=== PATIENT | female | born 1990 | race Caucasian/White ===

== ENCOUNTER 2017-05-19 19:26 | Emergency (ER) | payer MEDICAID ==
[2017-05-19 19:32] VITALS: BP 136/83
[2017-05-19 19:47] LABS: BILIRUBIN,URINE NEGATIVE (NEGATIVE); PH,URINE 5.5 PH (5.0-7.5)
[2017-05-19 20:03] LABS: HCG UR QUAL NEGATIVE; UA w/ MICROSCOPIC CHARGE YES
[2017-05-19 20:25] LABS: UR CULTURE IF IND NOT INDICATED
[2017-05-19] MEDS ORDERED: CYCLOBENZAPRINE 10 MG TABLET PO STA (20:47)
[2017-05-19] MEDS ORDERED: ACETAMINOPHEN 325 MG TABLET PO STA (20:47)
[2017-05-19] MEDS ORDERED: DEXAMETHASONE 10 MG/ML VIAL PO STA (20:47)
[2017-05-19] MEDS ORDERED: ACETAMINOPHEN 325 MG TABLET PO ONE (21:24)
[2017-05-19] MEDS ORDERED: CYCLOBENZAPRINE 10 MG TABLET PO ONE (21:24)
[2017-05-19] MEDS ORDERED: DEXAMETHASONE 10 MG/ML VIAL ONE (21:24)
--- NOTE | 2017-05-19 21:41 | XRAY Preliminary Report ---
Exam: XR Thoracic Spine 3 View IMPRESSION: Normal thoracic spine radiography. [facility] SITE ID: [id number]
--- NOTE | 2017-05-19 21:44 | XRAY Report ---
EXAM: THORACIC SPINE RADIOGRAPHY EXAM DATE: 05/19/2017 09:17 PM. CLINICAL HISTORY: Mid thoracic pain. COMPARISON: None. TECHNIQUE: 2 views. FINDINGS: Alignment: Normal. No spondylolisthesis or scoliosis. Bones: No fractures or bone lesions. Disks: Normal. Disk heights are maintained. Soft Tissues: Normal. The visualized lungs and cardiomediastinal silhouette are normal. IMPRESSION: Normal thoracic spine radiography. [facility] Referring Provider Line: [phone] SITE ID: [id number]
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
== END 2017-05-19 22:00 | disposition home or self-care (01) ==
LOC: ED 19:26
DX: M54.6 Pain in thoracic spine (principal); G89.29 Other chronic pain
CPT/HCPCS: 72072; 81001; 81025; 99283; A9270; 81003; 87086

== ENCOUNTER 2017-08-12 23:52 | Emergency (ER) | payer MEDICAID ==
--- NOTE | 2017-08-13 00:07 | ED Physician Documentation ---
PD HPI SKIN - Stated complaint Stated Complaint: ITCHING,FACIAL SWELLING,RASH - Chief complaint Chief Complaint: Allergic Rx - History obtained from History obtained from: Patient - History of Present Illness Timing - onset: How many hours ago (1), Today Timing - duration: Hours (1) Timing - details: Abrupt onset, Still present Location: Face (onset of facial swelling and itching then diffuse body itching hives. Does have feeling of some swelling in back of throat. No swelling of lips nor tongue. No wheezing/tightness in chest.), Bodywide Quality / character: Itchy, Discolored (red hives) Associated symptoms: No: Fever, Abd pain, N/V/D Contributing factors: No: Exposed to medication, Exposed to food, Exposed to soap / lotion, Insect bite /sting, Recent illness Similar symptoms before: Has not had sx before Recently seen: Not recently seen Review of Systems Constitutional: denies: Fever, Chills Nose: denies: Rhinorrhea / runny nose, Congestion Throat: denies: Sore throat Respiratory: denies: Cough GI: denies: Vomiting, Diarrhea PD PAST MEDICAL HISTORY - Past Medical History Cardiovascular: None Respiratory: None Neuro: None Endocrine/Autoimmune: None Musculoskeletal: Chronic back pain - Past Surgical History 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: Tonsil/Adenoidectomy - Present Medications Home Medications: Ambulatory Orders Medication Instructions Recorded Confirmed Etonogestrel [Nexplanon] 68 mg SQ DAILY 05/19/17 08/13/17 Cetirizine [ZyrTEC] 10 mg PO DAILY #20 tablet 08/13/17 Dexamethasone [Decadron] 4 mg PO DAILY #5 tablet 08/13/17 - Allergies Allergies/Adverse Reactions: Allergies Allergy/AdvReac Type Severity Reaction Status Date / Time azithromycin [From Zithromax] Allergy Rash Verified 08/13/17 00:03 amoxicillin AdvReac Rash Verified 08/13/17 00:03 - Social History Does the pt smoke?: No Smoking Status: Never smoker Does the pt drink ETOH?: No Does the pt have substance abuse?: No - Immunizations Immunizations are current?: Yes - POLST Patient has POLST: Yes PD ED PE NORMAL - Vitals Vital signs reviewed: Yes - General General: Alert and oriented X 3, Well developed/nourished - HEENT HEENT: Other (periorbital swelling both eyes. No swelling of lips. There is minimal uvular edema. Tongue and pallate without swelling. ) - Neck Neck: Supple, no meningeal sign, No adenopathy - Cardiac Cardiac: RRR, No murmur - Respiratory Respiratory: Clear bilaterally - Abdomen Abdomen: Soft - Derm Derm: Warm and dry, Other (diffuse patches of red, slightly raised rash without vesicles c/w hives. ) - Extremities Extremities: No deformity, No tenderness to palpate, Normal ROM s pain, No edema - Neuro Neuro: Alert and oriented X 3, No motor deficit, Normal speech - Psych Psych: Normal mood Results - Vitals Vitals: Vital Signs - 24 hr 08/12/17 08/13/17 23:58 01:23 Temperature 37.9 C H 36.9 C Heart Rate 94 68 Respiratory 18 16 Rate Blood Pressure 136/81 H 130/70 O2 Saturation 98 100 Oxygen O2 Source Room air PD MEDICAL DECISION MAKING - ED course Complexity details: re-evaluated patient (given IV and PO meds for this allergic reaction. Improved and stays doing okay (no itching/ minimal rash, but still edema face) and stays well for 1-2 hours. ), considered differential, d/w patient Departure - Departure Disposition: 01 Home, Self Care Clinical Impression: Allergic reaction Qualifiers: Encounter type: initial encounter Qualified Code(s): T78.40XA - Allergy, unspecified, initial encounter Condition: Stable Record reviewed to determine appropriate education?: Yes Instructions: ED Allergic Reaction General Other Prescriptions: Cetirizine [ZyrTEC] 10 mg PO DAILY #20 tablet Dexamethasone [Decadron] 4 mg PO DAILY #5 tablet Comments: Drink lots of fluids. Benadryl 25-50 mg every 6 hours if needed for persistent itching or hives. I would not anticipate needing this much beyond the next day. Use long-acting antihistamine such as cetirizine daily for the next 7-10 days. Decadron steroid daily for 5 more days. Presumably these medicines and timeframe will outlast what of her allergen in reaction is in your system. If the symptoms have not tapered down and gone away over the next day or 2 completely or if it is recurrent in the near future, and follow-up with your primary care is might require allergy testing to see which you are continuing to be exposed to. Most commonly an episode like this will go away and not recur and the cause of it may not be identified about half the time. Return if worsening significantly again. Discharge Date/Time: 08/13/17 01:25
[2017-08-13] MEDS ORDERED: EPINEPHrine 1 MG/ML AMP IM STA (00:22)
[2017-08-13] MEDS ORDERED: CETIRIZINE 10 MG TABLET PO STA (00:23)
[2017-08-13] MEDS ORDERED: diphenhydrAMINE INJ 50 MG/ML VIAL IVP STA (00:23)
[2017-08-13] MEDS ORDERED: DEXAMETHASONE 10 MG/ML VIAL IVP STA (00:23)
[2017-08-13] MEDS ORDERED: CETIRIZINE 10 MG TABLET ONE (00:32)
[2017-08-13] MEDS ORDERED: DEXAMETHASONE 10 MG/ML VIAL ONE (00:32)
[2017-08-13] MEDS ORDERED: diphenhydrAMINE INJ 50 MG/ML VIAL ONE (00:32)
[2017-08-13] MEDS ORDERED: EPINEPHrine 1 MG/ML AMP ONE (00:32)
[2017-08-13 01:24] VITALS: BP 130/70
== END 2017-08-13 01:25 | disposition home or self-care (01) ==
LOC: ED 23:52
DX: T78.40XA Allergy, unspecified, initial encounter (principal); X58.XXXA Exposure to other specified factors, initial encounter
CPT/HCPCS: 96372; 96374; 96375; 99283; 99284; A9270

== ENCOUNTER 2020-11-06 18:28 | Emergency (ER) | payer MEDICAID ==
[2020-11-06 18:39] VITALS: BP 145/95
[2020-11-06] MEDS ORDERED: IBUPROFEN 600 MG TABLET PO STA (18:44)
[2020-11-06] MEDS ORDERED: CLINDAMYCIN 150 MG CAPSULE PO STA (18:44)
[2020-11-06] MEDS ORDERED: BUPIVACAINE 0.5% PF 30 ML VIAL SUBQ ONE (18:45)
--- NOTE | 2020-11-06 18:45 | ED Physician Documentation ---
PD HPI HEENT - Stated complaint Stated Complaint: LEFT SIDE TOOTH PX - Chief complaint Chief Complaint: Heent - History obtained from History obtained from: Patient - Additional information Additional information: 30-year-old woman with history of chronic pain on Suboxone and a lot of dental issues presents with about 4 days of left mandibular pain from a problem tooth. She denies fevers or chills. There is mild facial swelling. She has seen a dentist for this but was not fond of the dentist so was planning on switching dentists. 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 HEENT: Tonsil/Adenoidectomy - Present Medications Home Medications: Ambulatory Orders Medication Instructions Recorded Confirmed Etonogestrel [Nexplanon] 68 mg SQ DAILY 05/19/17 08/13/17 Cetirizine [ZyrTEC] 10 mg PO DAILY #20 tablet 08/13/17 dexAMETHasone [Decadron] 4 mg PO DAILY #5 tablet 08/13/17 Clindamycin [Cleocin] 300 mg PO Q6H 10 Days #80 11/06/20 Ibuprofen [Motrin] 800 mg PO Q8H PRN #30 tab 11/06/20 - Allergies Allergies/Adverse Reactions: Allergies Allergy/AdvReac Type Severity Reaction Status Date / Time azithromycin [From Zithromax] Allergy Rash Verified 11/06/20 18:34 amoxicillin AdvReac Rash Verified 11/06/20 18:34 - Social History Does the pt smoke?: No Smoking Status: Never smoker Does the pt drink ETOH?: No Does the pt have substance abuse?: No - Immunizations Immunizations are current?: Yes - POLST Patient has POLST: Yes PD ED PE NORMAL - Vitals Vital signs reviewed: Yes - General General: Alert and oriented X 3, No acute distress - HEENT HEENT: Other (The left mandibular wisdom tooth is carious and tender with very mild overlying facial swelling but no sublingual edema or trismus.) - Neck Neck: Supple, no meningeal sign, No bony TTP - Neuro Neuro: Alert and oriented X 3, Normal speech Results - Vitals Vitals: Vital Signs - 24 hr 11/06/20 18:35 Temperature 36.5 C Heart Rate 95 Respiratory 16 Rate Blood Pressure 145/95 H O2 Saturation 100 Oxygen O2 Source Room air Procedures - Regional nerve block Nerve block site: Inferior alveolar Right / left: Left Nerve block anesthesia: Marcaine 0.25% Nerve block aftercare: Excellent anesthesia, Patient tolerated well Departure - Departure Disposition: Home, Self Care Clinical Impression: Pain due to dental caries Condition: Good Instructions: ED Tooth Pain Prescriptions: Clindamycin [Cleocin] 300 mg PO Q6H 10 Days #80 Ibuprofen [Motrin] 800 mg PO Q8H PRN #30 tab PRN Reason: PAIN &/OR FEVER Comments: It is very important that you follow-up with a dentist. When it comes to dental problems like yours, the emergency department can only offer a short-term solution to your long-term problem. A couple of low cost options for dental care include: [facility] in [place], calls [phone] for an appointment Or [facility] in [place], call [phone] for an appointment.
[2020-11-06] MEDS ORDERED: BUPIVACAINE 0.25% PF 30 ML VIAL ONE (19:00)
== END 2020-11-06 18:59 | disposition home or self-care (01) ==
LOC: ED 18:28
DX: K02.9 Dental caries, unspecified (principal)
CPT/HCPCS: 64400; 99282; 99283; A9270